=== PATIENT | male | born 1995 | race African-American/Black ===

== ENCOUNTER 2020-10-06 23:40 | Emergency (ER) | payer SELFPAY ==
[~2020-10-06] VITALS: Ht 190.5 cm; Wt 90.7 kg
[2020-10-07 00:42] VITALS: BP 155/97
--- NOTE | 2020-10-07 00:45 | NUR ---
BIBS FOR C/O R UPPER AND LOWER MOLAR TOOTACHE FOR BROKEN ROOT CANAL. PT AAO4. VSS BREATHING EVEN AND UNLABORED. PT RESTLESS D/T PAIN. WILL CONTINUE TO MONITOR.
[2020-10-07] MEDS ORDERED: MORPHINE SULFATE INJ 2 MG/ML DISP.SYRIN IM ONE (01:00)
[2020-10-07] MEDS ORDERED: MORPHINE SULFATE INJ 4 MG/ML DISP.SYRIN ONE (01:00)
--- NOTE | 2020-10-07 01:10 | NUR ---
Patient discharged to home in stable condition. Written and verbal after care instructions given. Patient verbalizes understanding of instruction. Pt amb w/ steady gait
== END 2020-10-07 01:11 | disposition home or self-care (01) ==
LOC: ER 23:42
DX: K08.89 Other specified disorders of teeth and supporting structures (principal)
CPT/HCPCS: 96372; 99283; J2270